=== PATIENT | male | born 1985 | race Caucasian/White ===

== ENCOUNTER 2025-03-16 19:35 | Emergency (ER) | payer MEDICAID, OTHER ==
[~2025-03-16] VITALS: Ht 182.9 cm; Wt 72.6 kg
[2025-03-16] MEDS ORDERED: IBUPROFEN 400 MG TABLET ONE (19:56)
[2025-03-16] MEDS: IBUPROFEN 400 MG TABLET PO ONE (19:59)
[2025-03-16 20:10] LABS: APPEARANCE,URINE CLEAR (CLEAR); BLOOD, URINE Negative Ery/uL (NEGATIVE); LEUKOCYTE ESTERASE ,URINE Negative (NEGATIVE); UGLUCOSE Negative (NEGATIVE)
[2025-03-16 20:12] LABS: NITRITE, URINE NEGATIVE (NEGATIVE)
[2025-03-16 21:57] VITALS: BP 142/76; TEMP 98; O2SAT 98
[2025-03-19 01:07] LABS: CHLAMYDIA TRACHOMATIS NAA Negative (Negative); NEISSERIA GONORRHOEAE NAA Negative (Negative)
== END 2025-03-16 21:57 | disposition home or self-care (01) ==
LOC: ER 19:48
DX: N50.89 Other specified disorders of the male genital organs (principal); N50.812 Left testicular pain
CPT/HCPCS: 76870-TC; 87086-TC; 87491; 87591